=== PATIENT | female | born 1960 | race Caucasian/White ===

== ENCOUNTER 2018-03-14 23:27 | Emergency (ER) | payer BC ==
[~2018-03-14] VITALS: Ht 170.2 cm; Wt 80.9 kg
[~2018-03-14 23:27] MED LIST: ALORA0.05 MG/24 TD; OMNICEF 300MG300 MG PO; VITAMIN C500 MG PO; ZOCOR5 MG; ZYRTEC 10MG10 MG PO
[2018-03-14 23:31] VITALS: BP 139/82; TEMP 97
[2018-03-15 00:36] VITALS: PULSE 80
== END 2018-03-15 00:39 | disposition home or self-care (01) ==
LOC: COL.ER 23:27
DX: S61.011A Laceration without foreign body of right thumb without damage to nail, initial encounter (principal); W26.8XXA Contact with other sharp object(s), not elsewhere classified, initial encounter; Y92.009 Unspecified place in unspecified non-institutional (private) residence as the place of occurrence of the external cause

== ENCOUNTER → 2018-05-09 | Outpatient (CLI) | payer BC | LOC: MC.RAD 07:48 | DX: Z12.31 Encounter for screening mammogram for malignant neoplasm of breast (principal); N63.13 Unspecified lump in the right breast, lower outer quadrant ==

== ENCOUNTER → 2018-05-14 | Outpatient (CLI) | payer BC | LOC: MC.RAD 07:16 | DX: N60.01 Solitary cyst of right breast (principal) ==

== ENCOUNTER → 2018-09-18 | Outpatient (CLI) | payer BC | LOC: COL.RAD 09-16 13:00 | DX: J01.11 Acute recurrent frontal sinusitis (principal) ==

== ENCOUNTER → 2019-07-01 | Outpatient (CLI) | payer BC | LOC: COL.RAD 07:05 | DX: M65.9 Synovitis and tenosynovitis, unspecified (principal) | CPT/HCPCS: A9585 ==

== ENCOUNTER → 2024-06-04 | Outpatient (CLI) | payer MEDICARE, BC | LOC: MHCPAIN 13:06 | DX: M51.26 Other intervertebral disc displacement, lumbar region (principal); M47.816 Spondylosis without myelopathy or radiculopathy, lumbar region | CPT/HCPCS: G0463 ==

== ENCOUNTER → 2024-07-03 | Outpatient (CLI) | payer MEDICARE, BC | LOC: MC.RAD 10:31 | DX: Z12.31 Encounter for screening mammogram for malignant neoplasm of breast (principal); N63.20 Unspecified lump in the left breast, unspecified quadrant ==